=== PATIENT | female | born 1940 | race Two or more races ===

== ENCOUNTER 2024-07-26 15:58 | Inpatient (IN) | payer OTHER ==
[~2024-07-26] VITALS: Ht 160 cm; Wt 63.5 kg
[2024-07-26] MEDS ORDERED: FEOSOL325 MG (16:06)
[2024-07-26] MEDS ORDERED: PLAVIX75 MG (16:06)
[2024-07-26] MEDS ORDERED: ATORVASTATIN CA20 MG (16:06)
[2024-07-26] MEDS ORDERED: DONEPEZIL HCL5 MG (16:06)
[2024-07-26] MEDS ORDERED: FLUOXETINE HCL20 MG (16:07)
[2024-07-26] MEDS ORDERED: LASIX20 MG (16:07)
[2024-07-26] MEDS ORDERED: FOLIC ACID20 MG (16:07)
[2024-07-26] MEDS ORDERED: LOSARTAN POTASS50 MG (16:07)
--- NOTE | 2024-07-26 16:09 | NUR ---
SE RECIBE PACIENTE ALERTA Y ORIENTADA X 2 EN AMBULANCIA EN COMPANIA DE FAMILIAR LA CUAL INDICA QUE PACIENTE PRESENTA DEBIILIDAD Y FALTA DE APETITO DESDE HACE VARIAS SEMANAS. FAMILIAR INDICA QUE PACIENTE PRESENTA ANEMIA HGB 9.10 LAB DEL 07/23. PACIENTE CON UN SOLO RINON.
[2024-07-26] MEDS ORDERED: NOREPINEPHRINE BITARTRATE 1 MG/ML AMPUL IV ONE (16:44)
[2024-07-26] MEDS ORDERED: 0.9 % SODIUM CHLORIDE 1,000 ML IV SCH ×2 (17:15→20:30)
[2024-07-26] MEDS ORDERED: ENOXAPARIN SODIUM 60 MG/0.6 ML SYRINGE SUBCUTANEO ONE ×2 (17:15→17:51)
[2024-07-26] MEDS ORDERED: NOREPINEPHRINE BITARTRATE 8 MG in DEXTROSE 5 % IN WATER 250 ML IV SCH (17:15)
--- NOTE | 2024-07-26 17:30 | NUR ---
SE RECIBE PTE ALERTA Y ORIENTADA EN PERSONA EN AREA DE CRITICO SE COLOCA EN CAMA BAJA CON BRANDAS ELEVADAS. SE COLOCA EN MONITOR CARDIACO Y SATUROMETRO. PTE EVANLUADO POR EL DR. BARAKAT. SE ORIENTA OSBRE TRATAMEINTO, VERBALIZA ENTENDER. SE CANALIZA X2, SE DANI MUESTRAS DE LAB Y SE ADMINISTRA MEDICAMENTO AL ORDEN MEDICA BAJO MEDIDAS ASEPTICAS. SE NOTIFICA XRAY PENDINTE. PENDINTE DOPPLER Y DUPLEX.
[2024-07-26 18:11] LABS: D DIMER 3.91 MG/L; PARTIAL THROMBOPLASTIN TIME 28.4 SECONDS (22.0-34.0)
[2024-07-26 18:14] LABS: BILIRUBIN TOTAL 0.29 mg/dL (0.3-1.2); CREATININE SERUM 2.02 mg/dL (0.55-1.02); GFR 23.58; POTASSIUM 3.34 mEq/L (3.5-5.1); TOTAL PROTEIN 3.1 gm/dL (6.4-8.2)
[2024-07-26 18:25] LABS: MEAN CELL VOLUME 111.2 fL (80.00-100.00); MEAN CORPUSCULAR HGB CONC 28.1 g/dl (32.0-36.0); PLATELET COUNT 198 K/uL (150-450); RED BLOOD COUNT 1.97 M/uL (4.00-6.00); RED CELL DISTRIBUTION WIDTH 17.5 % (11.5-14.5)
[2024-07-26 18:26] LABS: C-REACTIVE PROTEIN 1.03 MG/DL (0.00-0.29); GLOBULINA 2.2 G/DL (2.4-3.5); MEAN CORPUSCULAR HEMOGLOBIN 31.4 pg (27.00-32.0)
[2024-07-26 18:28] LABS: CALCIUM 5.4 mg/dL (8.5-10.1)
[2024-07-26 18:30] LABS: HEMATOCRIT 21.9 % (36.0-45.00); HEMOGLOBIN 6.2 g/dL (12.0-15.00)
[2024-07-26 18:35] LABS: INR 1.64
[2024-07-26 18:51] LABS: PROTHROMBIN TIME 17.2 SECONDS (9.0-11.5)
[2024-07-26 18:53] LABS: ALBUMIN 0.9 gm/dL (3.4-5.0)
--- NOTE | 2024-07-26 19:17 | NUR ---
SE REQUISA 3 UNIDADES DE PRBC FRANCIONADA. SE DANI TUBOS PILOTOS Y SE LLEVAN A LABORATORIO. FAMILIAR FIRMA CONSENTIMIENTO Y SE COLCOA EN RECORD DE PTE.
[2024-07-26 20:13] LABS: ABG PH 7.379 (7.35-7.45); ABG pCO2 23.4 mmHg (35-45); BASE EXCESS -9.4 mmol/l; BICARBONATE 13.5 mmol/l (23-25); SaO2 97.7 %; Tco2 14.2 mmol/l
[2024-07-26] MEDS ORDERED: PANTOPRAZOLE SODIUM 40 MG/VIAL VIAL IV SCH (20:23)
[2024-07-26] MEDS ORDERED: ALBUMIN HUMAN-25 0.25GM/ML (50ML) VIAL IV SCH (20:23)
[2024-07-26] MEDS ORDERED: ACETAMINOPHEN 500 MG GEL..CAP PO PRN (20:30)
[2024-07-26] MEDS ORDERED: RINGERS SOLUTION,LACTATED 1,000 ML IV SCH (20:30)
[2024-07-26] MEDS ORDERED: CIPROFLOXACIN IN 5 % DEXTROSE 200 ML IV ONE (20:30)
[2024-07-26] MEDS ORDERED: ONDANSETRON HCL 4 MG in 0.9 % SODIUM CHLORIDE 50 ML IV PRN (20:30)
[2024-07-26 20:38] LABS: o2 21 %
[2024-07-26 20:39] LABS: allen test SATISFACTORY; puncture site RADIAL RIGHT
[2024-07-26 21:12] LABS: MAGNESIUM 1.9 mg/dL (1.8-2.4); PHOSPHOROUS 3.6 mg/dL (2.5-4.9)
--- NOTE | 2024-07-26 21:28 | NUR ---
ST DANI MUESTRAS Y SE ADMINISTRAN MEDICAMENTO AL ORDEN MEDICA BAJO MEDIDAS ASEPTICAS. SE INSERTA BRAGA AL ORDEN MEDICA BAJO MEDIDAS ESTERILES. SE COLOCA CANULA A 1LT. SE REALIZA DOPPLER Y DUPLEX. PENDINTE CT YA NOTIFICADO. SE NOTIFICA BP/
[2024-07-26 21:32] LABS: PH,URINE 5.5 (5.0-8.0); URINE APPEARANCE Cloudy; URINE BILIRRUBIN Negative (NEGATIVE); URINE BLOOD Negative; URINE COLOR Yellow; URINE GLUCOSE Negative (NEGATIVE); URINE KETONE Negative (NEGATIVE); URINE LEUKOCYTE Large; URINE NITRATE Negative; URINE PROTEIN Trace (NEGATIVE); URINE UROBILINOGEN 0.2 E.U./dl
[2024-07-26 21:33] LABS: URINE CAST 10.84 uL (0.0-1.40); URINE EPITHELIAL CELLS 24.8 uL (0.0-38.8); URINE RBC 31.9 uL (0.0-20.8); URINE WBC 683.5 uL (0.0-23.2)
[2024-07-26 22:00] LABS: URINE BACTERIA > 9821.5 uL (0.0-1933)
[2024-07-26] MEDS ORDERED: VANCOMYCIN HCL 1,000 MG VIAL IV SCH (23:01)
[2024-07-27] VITALS (18 sets, daily range): BP systolic 76–128; BP diastolic 38–86; O2SAT 96–100
[2024-07-27] MEDS ORDERED: NOREPINEPHRINE BITARTRATE 1 MG/ML AMPUL IV ONE (01:08)
[2024-07-27] MEDS ORDERED: MEROPENEM 500 MG/VIAL VIAL IV SCH (05:00)
[2024-07-27] MEDS ORDERED: FOLIC ACID 1 MG TABLET PO SCH (09:00)
[2024-07-27] MEDS ORDERED: ALBUMIN HUMAN-25 0.25GM/ML (50ML) VIAL IV SCH (09:00)
[2024-07-27] MEDS ORDERED: IRON FUM,PS/FOLIC/BCOMP,C NO.9 1 CAP CAPSULE PO SCH (09:00)
[2024-07-27] MEDS ORDERED: ATORVASTATIN CALCIUM 40 MG TABLET PO SCH (09:00)
[2024-07-27] MEDS ORDERED: VANCOMYCIN HCL 1,000 MG VIAL IV SCH ×2 (14:00→21:00)
[2024-07-27] MEDS ORDERED: DONEPEZIL HCL 5 MG TABLET PO SCH (17:00)
[2024-07-27] MEDS ORDERED: ENOXAPARIN SODIUM 60 MG/0.6 ML SYRINGE SUBCUTANEO SCH (17:00)
[2024-07-27] MEDS ORDERED: PANTOPRAZOLE SODIUM 40 MG/VIAL VIAL IV SCH (21:00)
[2024-07-28] VITALS (12 sets, daily range): BP systolic 82–140; BP diastolic 53–84; O2SAT 95–100
[2024-07-28 07:49] LABS: ABG PH 7.373 (7.35-7.45); ABG PO2 174.3 mmHg (80-100); BASE EXCESS -8.5 mmol/l; BICARBONATE 14.8 mmol/l (23-25); SaO2 99.5 %; Tco2 15.6 mmol/l
[2024-07-28 07:55] LABS: allen test SATISFACTORY; o2 32 %; puncture site RADIAL RIGHT
[2024-07-28 08:14] LABS: HEMATOCRIT 38.6 % (36.0-45.00); HEMOGLOBIN 13.1 g/dL (12.0-15.00); MEAN CELL VOLUME 89.1 fL (80.00-100.00); MEAN CORPUSCULAR HEMOGLOBIN 30.3 pg (27.00-32.0); PLATELET COUNT 186 K/uL (150-450); RED BLOOD COUNT 4.33 M/uL (4.00-6.00); RED CELL DISTRIBUTION WIDTH 15.2 % (11.5-14.5)
[2024-07-28 08:59] LABS: ALBUMIN 1.7 gm/dL (3.4-5.0); BILIRUBIN TOTAL 2.26 mg/dL (0.3-1.2); CALCIUM 7.6 mg/dL (8.5-10.1); CREATININE SERUM 2.61 mg/dL (0.55-1.02); GFR 17.54; GLOBULINA 2.5 G/DL (2.4-3.5); MAGNESIUM 1.8 mg/dL (1.8-2.4); POTASSIUM 3.83 mEq/L (3.5-5.1); TOTAL PROTEIN 4.2 gm/dL (6.4-8.2)
[2024-07-28 10:25] LABS: PROCALCITONIN 0.35 ng/ml (0.020-0.080)
[2024-07-28 10:33] LABS: INR 1.42
[2024-07-28 10:46] LABS: CORTISOL 23.6 ug/dl; FOLIC ACID > 20.00 ng/ml (4.78-20)
[2024-07-28 10:47] LABS: PARTIAL THROMBOPLASTIN TIME 44.3 SECONDS (22.0-34.0); PROTHROMBIN TIME 15.1 SECONDS (9.0-11.5)
[2024-07-29 09:15] LABS: CA 125 70.5 U/mL (0.0-38.1); CA 15-3 18.7 U/mL (0.0-25.0)
== END 2024-07-28 14:09 | disposition designated cancer center or children's hospital (05) | DRG 871 ==
LOC: ER 15:58 → ICU 23:03 → ICU-2 23:03 → ICU 07-27 04:53
PROVIDERS: General Practice; Internal Medicine; Internal Medicine Hematology & Oncology; Internal Medicine Infectious Disease; ADMIT Internal Medicine; ATTEND Internal Medicine
PROC: B54DZZZ Ultrasonography of Bilateral Lower Extremity Veins (ICD-10-PCS; principal; 2024-07-26)
PROC: B44HZZZ Ultrasonography of Bilateral Lower Extremity Arteries (ICD-10-PCS; 2024-07-26)
PROC: BW4GZZZ Ultrasonography of Pelvic Region (ICD-10-PCS; 2024-07-27)
PROC: BW40ZZZ Ultrasonography of Abdomen (ICD-10-PCS; 2024-07-27)
PROC: B24BZZZ Ultrasonography of Heart with Aorta (ICD-10-PCS; 2024-07-27)
PROC: 02HV33Z Insertion of Infusion Device into Superior Vena Cava, Percutaneous Approach (ICD-10-PCS; 2024-07-27)
PROC: 30233N1 Transfusion of Nonautologous Red Blood Cells into Peripheral Vein, Percutaneous Approach (ICD-10-PCS; 2024-07-27)
DX: A41.9 Sepsis, unspecified organism (principal); E43 Unspecified severe protein-calorie malnutrition; R57.1 Hypovolemic shock; I82.422 Acute embolism and thrombosis of left iliac vein; I82.412 Acute embolism and thrombosis of left femoral vein; I82.432 Acute embolism and thrombosis of left popliteal vein; I82.442 Acute embolism and thrombosis of left tibial vein; N17.9 Acute kidney failure, unspecified; E87.20 Acidosis, unspecified; C64.1 Malignant neoplasm of right kidney, except renal pelvis; E78.5 Hyperlipidemia, unspecified; D64.9 Anemia, unspecified; E87.6 Hypokalemia; I95.9 Hypotension, unspecified; G30.9 Alzheimer's disease, unspecified; F02.80 Dementia in other diseases classified elsewhere, unspecified severity, without behavioral disturbance, psychotic disturbance, mood disturbance, and anxiety; I12.9 Hypertensive chronic kidney disease with stage 1 through stage 4 chronic kidney disease, or unspecified chronic kidney disease; N18.9 Chronic kidney disease, unspecified